=== PATIENT | female | born 1965 | race Caucasian/White ===

== ENCOUNTER 2017-05-04 16:33 | Emergency (ER) | payer OTHER, BC ==
[~2017-05-04] VITALS: Ht 165.1 cm; Wt 94.3 kg
[~2017-05-04 16:33] MED LIST: ACET325 PO; ACET500; ADULT TUSS100 MG/5 M PO; ALBU3IS INH; ALBU90OI; ALBU90OI6 INH; ASPI81CH PO; ASPI81EC PO; BENZ100A PO; BISA10S PR; BP MED PO; BREO ELLIPTA 21 EACH INH; BRINTELLIX20 MG PO; BUDE6HFA; CALMAGZIN PO; CARI350 PO; CEFD300 PO; CEPH500 PO; CITA20 PO; CYCL10 PO; ESCI10; ESCI10 PO; ESTR1; ESTR2; ESTR2 PO; Estrace PO; Estradiol1 MG PO; FEXO180 PO; FIBER SELECT GUMMIES; FLUO10 PO; FLUSAL2505; FLUSAL5005; FURO20 PO; Flagyl500 MG PO; GLIM4 PO; GUAI600T33 PO; Golytely Packe1 EACH PO; HYDACE5 PO; HYDCHL50; HYDCHLSU PO; HYDPAM25 PO; IBUP600 PO; IBUP800 PO; IPRAOI; IPRAOI INH; Kristalose20 GM PO; LANS15EC PO; LANS30EC; LANS30EC PO; LEVA.63IS; LEVA1.25 INH; LEVFLO500; LEVFLO500 PO; LEVO750 PO; LEVSOD100; LEVSOD100 PO; LEVSOD112 PO; LEVSOD125 PO; LISHYD1012 PO; LISI20 PO; LOSA50 PO; LOSHYD; MELO7.5 PO; METF500 PO; METPRE4DP PO; MONT10T; MONT4; NAPR500 PO; Norco 5-325 Ta1 EACH PO; ONDA4 PO; ONDA4ODT MM; OXYACE5T PO; PANT40 PO; PARO10 PO; POTCHL10ER PO; PRED10 PO; PRED20; PROBIOTIC FORMULA; PROCODE120 PO; Percocet 5-3251 EACH PO; Prednisone20 MG PO; RXCYCL10 PO; RXHYDACE PO; RXONDA4ODT MM; RXTRAM50 PO; TOPI50 PO; TRAM50 PO; TRAZODONE PO; TRIA80TC TOP; Tamiflu75 MG PO; VENL150ER PO; VENL75ER PO; Valium5 MG PO; XOPENEX; XOPENEX INH; Zithromax250 MG PO; Zofran Odt4 MG SL; Zofran4 MG PO; Zofran8 MG PO; [UNRECOGNIZED DRUG - REMARK]
[2017-05-04 17:44] LABS: BASOPHILS ABSOLUTE AUTO 0.05 K/mm3 (0.00-0.23); BASOPHILS PERCENT AUTO 1 % (0-2); EOSINOPHILS ABSOLUTE AUTO 0.15 K/mm3 (0.00-0.68); EOSINOPHILS PERCENT AUTO 2 % (0-6); Hematocrit 35.5 % (33.0-51.0); Hemoglobin 12.4 g/dL (11.5-16.0); IMMATURE GRAN ABSOLUTE AUTO 0.02 K/mm3 (0.00-0.10); IMMATURE GRAN PERCENT AUTO 0 % (0-1); LYMPHOCYTES ABSOLUTE AUTO 2.79 K/mm3 (0.84-5.20); LYMPHOCYTES PERCENT AUTO 32 % (21-46); MONOCYTES ABSOLUTE AUTO 0.78 K/mm3 (0.16-1.47); MONOCYTES PERCENT AUTO 9 % (4-13); Mean Corpuscular HGB 29.1 pg (26.0-34.0); Mean Corpuscular HGB Conc 34.9 g/dL (31.5-36.5); Mean Corpuscular Volume 83 fL (80-100); Mean Platelet Volume 11.1 fL (9.1-12.4); NEUTROPHILS ABSOLUTE AUTO 4.87 K/mm3 (1.96-9.15); NEUTROPHILS PERCENT AUTO 56 % (41-73); Platelet Count 244 K/mm3 (150-400); RDW Coefficient Variation 13.2 % (11.7-14.2); RDW Standard Deviation 39.7 fL (35.1-46.3); Red Blood Cell Count 4.26 M/mm3 (3.80-5.20); White Blood Cell Count 8.66 K/mm3 (4.00-11.30)
[2017-05-04 17:52] LABS: Alanine Aminotransfer (ALT/SGP 26 U/L (12-78); Albumin, Blood 3.5 g/dL (3.4-5.0); Alk Phos 77 U/L (50-136); Anion Gap 8 mmol/L (6-16); Aspartate Aminotrans (AST/SGOT 19 U/L (12-37); Bilirubin, Total 0.3 mg/dL (0.1-1.0); Blood Urea Nitrogen 18 mg/dL (8-24); Bun/Creatinine Ratio 22.2 (12.0-20.0); CO2, Blood 26 mmol/L (21-32); Calcium, Blood 8.5 mg/dL (8.5-10.1); Chloride, Blood 105 mmol/L (98-108); Creatinine, Blood 0.81 mg/dL (0.40-1.00); Globulin, Blood 3.5 g/dL (2.2-4.0); Glomerular Filtration Rate >60 (60-); Glucose, Blood 131 mg/dL (70-99); Sodium, Blood 139 mmol/L (136-145); Troponin I <0.015 ng/mL (0.000-0.040)
[2017-05-04 18:19] LABS: Influenza A Negative (NEGATIVE); Influenza B Negative (NEGATIVE)
[2018-02-07] MEDS ORDERED: ALBU90OI61 INH (21:58)
[2018-02-07] MEDS ORDERED: Prednisone50 MG PO (22:29)
[2018-02-07] MEDS ORDERED: BENADRYL25 MG PO (22:29)
[2018-02-07] MEDS ORDERED: Pepcid40 MG PO (22:29)
== END 2017-05-04 22:06 | disposition home or self-care (01) ==
LOC: ER 16:33
PROVIDERS: Emergency Medicine
DX: R07.2 Precordial pain (principal); Z88.2 Allergy status to sulfonamides; Z88.8 Allergy status to other drugs, medicaments and biological substances; Z79.899 Other long term (current) drug therapy; Z79.82 Long term (current) use of aspirin; E11.9 Type 2 diabetes mellitus without complications; J45.909 Unspecified asthma, uncomplicated
CPT/HCPCS: 36415; 71046; 80053; 81000; 84484; 85025; 85379; 87804; 93005; 93010; 94640; 96374; 99283; J2405

== ENCOUNTER 2017-06-08 17:13 | Emergency (ER) | payer OTHER, BC ==
[2018-02-07] MEDS ORDERED: ALBU90OI61 INH (21:58)
[2018-02-07] MEDS ORDERED: Pepcid40 MG PO (22:29)
[2018-02-07] MEDS ORDERED: BENADRYL25 MG PO (22:29)
[2018-02-07] MEDS ORDERED: Prednisone50 MG PO (22:29)
== END 2017-06-08 19:35 | disposition left against medical advice (07) ==
LOC: ER 17:13
DX: Z53.21 Procedure and treatment not carried out due to patient leaving prior to being seen by health care provider (principal)

== ENCOUNTER 2018-04-13 17:27 | Emergency (ER) | payer OTHER, BC ==
[~2018-04-13] VITALS: Ht 162.6 cm; Wt 92.1 kg
[~2018-04-13 17:27] MED LIST changes: +ALBU90OI61 INH; +BENADRYL25 MG PO; +Pepcid40 MG PO; +Prednisone50 MG PO
== END 2018-04-13 19:25 | disposition home or self-care (01) ==
LOC: ER 17:27
DX: R05 Cough (principal); E11.9 Type 2 diabetes mellitus without complications; I10 Essential (primary) hypertension; J45.909 Unspecified asthma, uncomplicated; E03.9 Hypothyroidism, unspecified; Z88.2 Allergy status to sulfonamides; Z88.8 Allergy status to other drugs, medicaments and biological substances; Z91.018 Allergy to other foods; Z79.899 Other long term (current) drug therapy; Z79.82 Long term (current) use of aspirin
CPT/HCPCS: 71046; 99283-25

== ENCOUNTER 2018-09-02 16:30 | Emergency (ER) | payer OTHER, BC ==
[~2018-09-02] VITALS: Ht 165.1 cm; Wt 87.1 kg
[2018-09-02 17:16] LABS: BASOPHILS ABSOLUTE AUTO 0.06 K/mm3 (0.00-0.23); BASOPHILS PERCENT AUTO 1 % (0-2); EOSINOPHILS ABSOLUTE AUTO 0.16 K/mm3 (0.00-0.68); EOSINOPHILS PERCENT AUTO 2 % (0-6); Hematocrit 40.5 % (33.0-51.0); Hemoglobin 13.7 g/dL (11.5-16.0); IMMATURE GRAN ABSOLUTE AUTO 0.02 K/mm3 (0.00-0.10); IMMATURE GRAN PERCENT AUTO 0 % (0-1); LYMPHOCYTES ABSOLUTE AUTO 2.84 K/mm3 (0.84-5.20); LYMPHOCYTES PERCENT AUTO 31 % (21-46); MONOCYTES ABSOLUTE AUTO 0.71 K/mm3 (0.16-1.47); MONOCYTES PERCENT AUTO 8 % (4-13); Mean Corpuscular HGB 28.5 pg (26.0-34.0); Mean Corpuscular HGB Conc 33.8 g/dL (31.5-36.5); Mean Corpuscular Volume 84 fL (80-100); Mean Platelet Volume 10.8 fL (9.1-12.4); NEUTROPHILS ABSOLUTE AUTO 5.29 K/mm3 (1.96-9.15); NEUTROPHILS PERCENT AUTO 58 % (41-73); Platelet Count 267 K/mm3 (150-400); RDW Coefficient Variation 12.4 % (11.7-14.2); RDW Standard Deviation 37.8 fL (35.1-46.3); Red Blood Cell Count 4.81 M/mm3 (3.80-5.20); White Blood Cell Count 9.08 K/mm3 (4.00-11.30)
[2018-09-02] MEDS ORDERED: LEVSOD125 PO (17:18)
[2018-09-02] MEDS ORDERED: LOSA50 PO (17:18)
[2018-09-02] MEDS ORDERED: Aspir 8181 MG PO (17:18)
[2018-09-02] MEDS ORDERED: ALBU3IS (17:18)
[2018-09-02] MEDS ORDERED: ALBU90OI61 (17:19)
[2018-09-02] MEDS ORDERED: VENL25 (17:19)
[2018-09-02 17:36] LABS: Alanine Aminotransfer (ALT/SGP 29 U/L (12-78); Albumin, Blood 3.8 g/dL (3.4-5.0); Alk Phos 79 U/L (50-136); Anion Gap 6 mmol/L (6-16); Aspartate Aminotrans (AST/SGOT 19 U/L (12-37); Bilirubin, Total 0.7 mg/dL (0.1-1.0); Blood Urea Nitrogen 16 mg/dL (8-24); CO2, Blood 27 mmol/L (21-32); Calcium, Blood 8.8 mg/dL (8.5-10.1); Chloride, Blood 102 mmol/L (98-108); Creatinine, Blood 0.94 mg/dL (0.40-1.00); Globulin, Blood 3.8 g/dL (2.2-4.0); Glomerular Filtration Rate >60 (60-); Glucose, Blood 151 mg/dL (70-99); Potassium, Blood 3.7 mmol/L (3.5-5.5); Sodium, Blood 135 mmol/L (136-145); Total Protein, Blood 7.6 g/dL (6.4-8.2)
[2018-09-02] MEDS ORDERED: Augmentin 875-1 EACH PO (20:18)
== END 2018-09-02 20:42 | disposition home or self-care (01) ==
LOC: ER 16:30
PROVIDERS: Emergency Medicine
DX: K52.9 Noninfective gastroenteritis and colitis, unspecified (principal); E11.9 Type 2 diabetes mellitus without complications; E03.9 Hypothyroidism, unspecified; I10 Essential (primary) hypertension; J45.909 Unspecified asthma, uncomplicated; Z88.2 Allergy status to sulfonamides; Z88.8 Allergy status to other drugs, medicaments and biological substances; Z91.018 Allergy to other foods
CPT/HCPCS: 36415; 74177; 80053; 83690; 84484; 85025; 93005; 93010; 96361; 96374-59; 96375; 96376; 99284-25; A9270-GY; J1885; J2270; J2405; J7030; Q9967

== ENCOUNTER 2019-01-14 18:16 | Emergency (ER) | payer OTHER, BC ==
[~2019-01-14] VITALS: Ht 162.6 cm; Wt 90.3 kg
[~2019-01-14 18:16] MED LIST changes: +ALBU3IS; +ALBU90OI61; +Aspir 8181 MG PO; +Augmentin 875-1 EACH PO; +VENL25
[2019-01-14 18:50] LABS: Source, Urine Clean Catch
[2019-01-14 18:55] LABS: BASOPHILS ABSOLUTE AUTO 0.05 K/mm3 (0.00-0.23); BASOPHILS PERCENT AUTO 1 % (0-2); EOSINOPHILS ABSOLUTE AUTO 0.15 K/mm3 (0.00-0.68); EOSINOPHILS PERCENT AUTO 2 % (0-6); Hematocrit 36.7 % (33.0-51.0); Hemoglobin 12.7 g/dL (11.5-16.0); IMMATURE GRAN ABSOLUTE AUTO 0.04 K/mm3 (0.00-0.10); IMMATURE GRAN PERCENT AUTO 0 % (0-1); LYMPHOCYTES PERCENT AUTO 30 % (21-46); MONOCYTES ABSOLUTE AUTO 0.77 K/mm3 (0.16-1.47); MONOCYTES PERCENT AUTO 8 % (4-13); Mean Corpuscular HGB 28.9 pg (26.0-34.0); Mean Corpuscular HGB Conc 34.6 g/dL (31.5-36.5); Mean Corpuscular Volume 83 fL (80-100); Mean Platelet Volume 11.1 fL (9.1-12.4); NEUTROPHILS ABSOLUTE AUTO 5.49 K/mm3 (1.96-9.15); NEUTROPHILS PERCENT AUTO 59 % (41-73); Platelet Count 246 K/mm3 (150-400); RDW Coefficient Variation 12.5 % (11.7-14.2)
[2019-01-14 19:03] LABS: Appearance, Urine Clear (Clear); Bilirubin, Urine Neg (Neg); Blood, Urine Neg (Neg); Color, Urine Amber (P-Yellow); Glucose Qualitative, Urine Neg (Neg); Ketones, Urine 1+ (Neg); Leukocyte Esterase, Urine 1+ (Neg); Nitrite, Urine Neg (Neg); Protein, Urine Neg (Neg); Specific Gravity, Urine 1.025 (1.003-1.022); Urobilinogen, Urine NORM (Normal)
[2019-01-14 19:05] LABS: Red Blood Cells, Urine 0-2 /hpf (0-2)
[2019-01-14 19:06] LABS: Bacteria Mod /hpf; Squamous Epithelial Cells Mod /hpf (Few)
[2019-01-14 19:12] LABS: Alanine Aminotransfer (ALT/SGP 28 U/L (12-78); Albumin, Blood 3.7 g/dL (3.4-5.0); Albumin/Globulin Ratio 1.2 (0.8-1.8); Alk Phos 89 U/L (50-136); Anion Gap 5 mmol/L (6-16); Aspartate Aminotrans (AST/SGOT 17 U/L (12-37); Bilirubin, Total 0.4 mg/dL (0.1-1.0); Blood Urea Nitrogen 21 mg/dL (8-24); Bun/Creatinine Ratio 22.1 (12.0-20.0); CO2, Blood 28 mmol/L (21-32); Calcium, Blood 8.7 mg/dL (8.5-10.1); Chloride, Blood 104 mmol/L (98-108); Creatinine, Blood 0.95 mg/dL (0.40-1.00); Globulin, Blood 3.2 g/dL (2.2-4.0); Glomerular Filtration Rate >60 (60-); Glucose, Blood 179 mg/dL (70-99); Potassium, Blood 3.9 mmol/L (3.5-5.5); Sodium, Blood 137 mmol/L (136-145); Total Protein, Blood 6.9 g/dL (6.4-8.2)
== END 2019-01-14 23:17 | disposition home or self-care (01) ==
LOC: ER 18:16
PROVIDERS: Physician Assistant
DX: K52.9 Noninfective gastroenteritis and colitis, unspecified (principal); K59.00 Constipation, unspecified; E11.9 Type 2 diabetes mellitus without complications; I10 Essential (primary) hypertension; E03.9 Hypothyroidism, unspecified; Z88.2 Allergy status to sulfonamides; Z88.1 Allergy status to other antibiotic agents; Z91.018 Allergy to other foods; Z79.899 Other long term (current) drug therapy; Z79.82 Long term (current) use of aspirin
CPT/HCPCS: 36415; 74176; 80053; 81001; 83690; 85025; 87086; 96361; 96374; 96376; 99284-25; J2405; J7030

== ENCOUNTER 2019-02-09 02:22 | Emergency (ER) | payer OTHER, BC ==
[~2019-02-09] VITALS: Ht 162.6 cm; Wt 88.5 kg
[2019-02-09 03:34] LABS: BASOPHILS ABSOLUTE AUTO 0.06 K/mm3 (0.00-0.23); BASOPHILS PERCENT AUTO 1 % (0-2); EOSINOPHILS PERCENT AUTO 2 % (0-6); Hematocrit 39.2 % (33.0-51.0); Hemoglobin 13.5 g/dL (11.5-16.0); IMMATURE GRAN ABSOLUTE AUTO 0.02 K/mm3 (0.00-0.10); IMMATURE GRAN PERCENT AUTO 0 % (0-1); LYMPHOCYTES ABSOLUTE AUTO 2.76 K/mm3 (0.84-5.20); LYMPHOCYTES PERCENT AUTO 31 % (21-46); MONOCYTES ABSOLUTE AUTO 0.79 K/mm3 (0.16-1.47); MONOCYTES PERCENT AUTO 9 % (4-13); Mean Corpuscular HGB 29.2 pg (26.0-34.0); Mean Corpuscular HGB Conc 34.4 g/dL (31.5-36.5); Mean Corpuscular Volume 85 fL (80-100); Mean Platelet Volume 10.9 fL (9.1-12.4); NEUTROPHILS ABSOLUTE AUTO 5.18 K/mm3 (1.96-9.15); NEUTROPHILS PERCENT AUTO 58 % (41-73); Platelet Count 264 K/mm3 (150-400); RDW Coefficient Variation 12.6 % (11.7-14.2); RDW Standard Deviation 38.3 fL (35.1-46.3); Red Blood Cell Count 4.63 M/mm3 (3.80-5.20); White Blood Cell Count 9.01 K/mm3 (4.00-11.30)
[2019-02-09 03:53] LABS: Alanine Aminotransfer (ALT/SGP 27 U/L (12-78); Albumin/Globulin Ratio 1.1 (0.8-1.8); Alk Phos 96 U/L (50-136); Anion Gap 6 mmol/L (6-16); Aspartate Aminotrans (AST/SGOT 23 U/L (12-37); Bilirubin, Total 0.4 mg/dL (0.1-1.0); Blood Urea Nitrogen 19 mg/dL (8-24); Bun/Creatinine Ratio 18.6 (12.0-20.0); CO2, Blood 27 mmol/L (21-32); Calcium, Blood 8.9 mg/dL (8.5-10.1); Chloride, Blood 106 mmol/L (98-108); Creatinine, Blood 1.02 mg/dL (0.40-1.00); Globulin, Blood 3.7 g/dL (2.2-4.0); Glomerular Filtration Rate >60 (60-); Glucose, Blood 149 mg/dL (70-99); Potassium, Blood 4.1 mmol/L (3.5-5.5); Sodium, Blood 139 mmol/L (136-145); Total Protein, Blood 7.7 g/dL (6.4-8.2)
[2019-02-09 04:04] LABS: Source, Urine Clean Catch
[2019-02-09 04:16] LABS: Bilirubin, Urine Neg (Neg); Blood, Urine 1+ (Neg); Glucose Qualitative, Urine Neg (Neg); Ketones, Urine Neg (Neg); Leukocyte Esterase, Urine 1+ (Neg); Nitrite, Urine Neg (Neg); Protein, Urine Neg (Neg); Urobilinogen, Urine NORM (Normal)
[2019-02-09 04:20] LABS: Appearance, Urine Hazy (Clear); Color, Urine Yellow (P-Yellow)
[2019-02-09 04:22] LABS: Bacteria Mod /hpf; Red Blood Cells, Urine Rare /hpf (0-2); Squamous Epithelial Cells Few /hpf (Few)
[2019-02-09] MEDS ORDERED: Flomax0.4 MG PO (05:37)
[2019-02-09] MEDS ORDERED: ONDA4ODT MM (05:37)
[2019-02-09] MEDS ORDERED: Percocet 5-3251 EACH PO (05:37)
== END 2019-02-09 05:57 | disposition home or self-care (01) ==
LOC: ER 02:22
PROVIDERS: Emergency Medicine
DX: N20.1 Calculus of ureter (principal); E11.9 Type 2 diabetes mellitus without complications; E03.9 Hypothyroidism, unspecified; I10 Essential (primary) hypertension; Z88.2 Allergy status to sulfonamides; Z88.1 Allergy status to other antibiotic agents; Z91.018 Allergy to other foods; Z79.899 Other long term (current) drug therapy
CPT/HCPCS: 36415; 74176; 80053; 81001; 85025; 87086; 96361; 96374; 96375; 99284-25; A9270; J1170; J1885; J2405; J7030

== ENCOUNTER 2019-03-04 08:48 | Emergency (ER) | payer OTHER, BC ==
[~2019-03-04] VITALS: Ht 162.6 cm; Wt 88.9 kg
[~2019-03-04 08:48] MED LIST changes: +Flomax0.4 MG PO
[2019-03-04 09:39] LABS: Source, Urine Clean Catch
[2019-03-04 09:47] LABS: Bilirubin, Urine Neg (Neg); Blood, Urine 5+ (Neg); Glucose Qualitative, Urine Neg (Neg); Ketones, Urine Neg (Neg); Leukocyte Esterase, Urine 3+ (Neg); Nitrite, Urine Pos (Neg); Protein, Urine 3+ (Neg); Specific Gravity, Urine 1.015 (1.003-1.022); Urobilinogen, Urine NORM (Normal)
[2019-03-04 09:55] LABS: BASOPHILS ABSOLUTE AUTO 0.05 K/mm3 (0.00-0.23); BASOPHILS PERCENT AUTO 1 % (0-2); EOSINOPHILS ABSOLUTE AUTO 0.18 K/mm3 (0.00-0.68); EOSINOPHILS PERCENT AUTO 2 % (0-6); Hematocrit 36.2 % (33.0-51.0); Hemoglobin 12.7 g/dL (11.5-16.0); IMMATURE GRAN ABSOLUTE AUTO 0.03 K/mm3 (0.00-0.10); IMMATURE GRAN PERCENT AUTO 0 % (0-1); LYMPHOCYTES ABSOLUTE AUTO 1.83 K/mm3 (0.84-5.20); LYMPHOCYTES PERCENT AUTO 19 % (21-46); MONOCYTES ABSOLUTE AUTO 0.65 K/mm3 (0.16-1.47); MONOCYTES PERCENT AUTO 7 % (4-13); Mean Corpuscular HGB 29.1 pg (26.0-34.0); Mean Corpuscular HGB Conc 35.1 g/dL (31.5-36.5); Mean Corpuscular Volume 83 fL (80-100); Mean Platelet Volume 10.7 fL (9.1-12.4); NEUTROPHILS ABSOLUTE AUTO 6.76 K/mm3 (1.96-9.15); NEUTROPHILS PERCENT AUTO 71 % (41-73); Platelet Count 223 K/mm3 (150-400); RDW Coefficient Variation 12.2 % (11.7-14.2); RDW Standard Deviation 37.2 fL (35.1-46.3); Red Blood Cell Count 4.37 M/mm3 (3.80-5.20)
[2019-03-04 09:55] LABS: Appearance, Urine Hazy (Clear)
[2019-03-04] MEDS ORDERED: ASPI81CH PO (09:55)
[2019-03-04] MEDS ORDERED: VENL150ER PO (09:55)
[2019-03-04] MEDS ORDERED: BUPR150ER PO (09:55)
[2019-03-04 09:56] LABS: Bacteria Few /hpf; Color, Urine Yellow (P-Yellow); Squamous Epithelial Cells Few /hpf (Few)
[2019-03-04] MEDS ORDERED: TAMS.4ER PO (09:56)
[2019-03-04] MEDS ORDERED: LEVSOD125 PO (09:56)
[2019-03-04 10:12] LABS: Alanine Aminotransfer (ALT/SGP 32 U/L (12-78); Albumin, Blood 3.6 g/dL (3.4-5.0); Alk Phos 83 U/L (50-136); Anion Gap 6 mmol/L (6-16); Aspartate Aminotrans (AST/SGOT 25 U/L (12-37); Bilirubin, Total 0.5 mg/dL (0.1-1.0); Blood Urea Nitrogen 12 mg/dL (8-24); Bun/Creatinine Ratio 13.2 (12.0-20.0); CO2, Blood 27 mmol/L (21-32); Calcium, Blood 8.8 mg/dL (8.5-10.1); Chloride, Blood 106 mmol/L (98-108); Creatinine, Blood 0.91 mg/dL (0.40-1.00); Globulin, Blood 3.6 g/dL (2.2-4.0); Glomerular Filtration Rate >60 (60-); Glucose, Blood 138 mg/dL (70-99); Potassium, Blood 4.3 mmol/L (3.5-5.5); Sodium, Blood 139 mmol/L (136-145); Total Protein, Blood 7.2 g/dL (6.4-8.2)
[2019-03-04] MEDS ORDERED: Norco 5-325 Ta1 EACH PO (10:16)
[2019-03-04] MEDS ORDERED: IBUP800 PO (10:16)
[2019-03-04] MEDS ORDERED: Cipro500 MG PO (10:16)
== END 2019-03-04 11:17 | disposition home or self-care (01) ==
LOC: ER 08:48
PROVIDERS: Emergency Medicine
DX: N10 Acute pyelonephritis (principal); I10 Essential (primary) hypertension; E11.9 Type 2 diabetes mellitus without complications; E03.9 Hypothyroidism, unspecified; J45.909 Unspecified asthma, uncomplicated; Z87.442 Personal history of urinary calculi; Z88.2 Allergy status to sulfonamides; Z88.8 Allergy status to other drugs, medicaments and biological substances; Z91.018 Allergy to other foods; Z79.899 Other long term (current) drug therapy; Z79.82 Long term (current) use of aspirin
CPT/HCPCS: 36415; 76770; 80053; 81001; 85025; 87077; 87086; 87186; 96374; 96375; 99284-25; J1885; J2405; J3010

== ENCOUNTER 2019-04-01 18:31 | Observation (INO) | payer OTHER, BC ==
[~2019-04-01] VITALS: Ht 162.6 cm; Wt 90.7 kg
[~2019-04-01 18:31] MED LIST changes: +Aspirin EC81 MG PO; +BUPR150ER PO; +Cipro500 MG PO; +TAMS.4ER PO; +VENLAFAXINE HC225 MG PO
[2019-04-01 19:10] LABS: BASOPHILS ABSOLUTE AUTO 0.07 K/mm3 (0.00-0.23); BASOPHILS PERCENT AUTO 1 % (0-2); EOSINOPHILS PERCENT AUTO 2 % (0-6); Hematocrit 39.7 % (33.0-51.0); Hemoglobin 13.6 g/dL (11.5-16.0); IMMATURE GRAN ABSOLUTE AUTO 0.03 K/mm3 (0.00-0.10); IMMATURE GRAN PERCENT AUTO 0 % (0-1); LYMPHOCYTES ABSOLUTE AUTO 3.25 K/mm3 (0.84-5.20); LYMPHOCYTES PERCENT AUTO 32 % (21-46); MONOCYTES ABSOLUTE AUTO 0.77 K/mm3 (0.16-1.47); MONOCYTES PERCENT AUTO 8 % (4-13); Mean Corpuscular HGB 29.6 pg (26.0-34.0); Mean Corpuscular HGB Conc 34.3 g/dL (31.5-36.5); Mean Corpuscular Volume 86 fL (80-100); Mean Platelet Volume 10.4 fL (9.1-12.4); NEUTROPHILS PERCENT AUTO 57 % (41-73); Platelet Count 259 K/mm3 (150-400); RDW Coefficient Variation 12.3 % (11.7-14.2); RDW Standard Deviation 39.1 fL (35.1-46.3); White Blood Cell Count 10.12 K/mm3 (4.00-11.30)
[2019-04-01 19:36] LABS: Alanine Aminotransfer (ALT/SGP 50 U/L (12-78); Albumin/Globulin Ratio 1.1 (0.8-1.8); Alk Phos 84 U/L (50-136); Anion Gap 7 mmol/L (6-16); Aspartate Aminotrans (AST/SGOT 32 U/L (12-37); Bilirubin, Total 0.4 mg/dL (0.1-1.0); Blood Urea Nitrogen 14 mg/dL (8-24); Bun/Creatinine Ratio 18.3 (12.0-20.0); CO2, Blood 26 mmol/L (21-32); Calcium, Blood 8.9 mg/dL (8.5-10.1); Chloride, Blood 104 mmol/L (98-108); Creatinine, Blood 0.77 mg/dL (0.40-1.00); Globulin, Blood 3.7 g/dL (2.2-4.0); Glomerular Filtration Rate >60 (60-); Glucose, Blood 139 mg/dL (70-99); Potassium, Blood 4.1 mmol/L (3.5-5.5); Sodium, Blood 137 mmol/L (136-145); Total Protein, Blood 7.7 g/dL (6.4-8.2)
[2019-04-01 21:54] LABS: Source, Urine Clean Catch
[2019-04-01 22:01] LABS: Bilirubin, Urine Neg (Neg); Blood, Urine 1+ (Neg); Glucose Qualitative, Urine Neg (Neg); Ketones, Urine Neg (Neg); Leukocyte Esterase, Urine 1+ (Neg); Nitrite, Urine Neg (Neg); Protein, Urine Neg (Neg); Urobilinogen, Urine NORM (Normal)
[2019-04-01 22:04] LABS: Appearance, Urine Clear (Clear); Color, Urine Yellow (P-Yellow)
[2019-04-01 22:05] LABS: Bacteria Mod /hpf; Red Blood Cells, Urine 0-2 /hpf (0-2); Squamous Epithelial Cells Few /hpf (Few); White Blood Cells, Urine 0-2 /hpf (0-5)
--- NOTE | 2019-04-01 22:24 | NUR ---
ADMITTED 54 YR OLD FEMALE FROM THE ED WITH DX GI BLEED. ADMITTED FOR OBSERVATION. HX REPORTED HEMORRHOIDS. ALERT AND ORIENTED X 4. UP AD ALYCE. CLEAR LIQUID DIET. NO ANTICOAGULANTS. ORIENTED TO CALL LIGHT AND FALL PRECAUTIONS. PLACED ON [employer].
[2019-04-02 01:07] LABS: Hematocrit 37.2 % (33.0-51.0); Hemoglobin 12.7 g/dL (11.5-16.0)
--- NOTE | 2019-04-02 06:39 | NUR ---
RESTING QUIETLY WITH FEW INTERRUPTIONS. VSS. PLACED ON ISO PRECAUTIONS PER INFECTION CONTROL UNTIL GI PANEL IS COLLECTED. CALL LIGHT IN REACH.
[2019-04-02 07:35] LABS: Hemoglobin 12.7 g/dL (11.5-16.0)
[2019-04-02 12:41] LABS: Adenovirus F 40/41 Not Detected (NOT DETECT); Astrovirus Not Detected (NOT DETECT); Campylobacter Sp Not Detected (NOT DETECT); Cryptosporidium Not Detected (NOT DETECT); Cyclospora Cayetanensis Not Detected (NOT DETECT); E. Coli O157 Not Detected (NOT DETECT); Entamoeba Histolytica Not Detected (NOT DETECT); Enteroaggregative E. coli-EAEC Not Detected (NOT DETECT); Enteropathogenic E. coli-EPEC Not Detected (NOT DETECT); Enterotoxigenic E. coli-ETEC Not Detected (NOT DETECT); Giardia Lamblia Not Detected (NOT DETECT); Norovirus GI/GII Not Detected (NOT DETECT); Plesiomonas Shigelloides Not Detected (NOT DETECT); Rotavirus A Not Detected (NOT DETECT); Salmonella Sp Not Detected (NOT DETECT); Sapovirus Not Detected (NOT DETECT); Shiga Toxin-prod E. coli-STEC Not Detected (NOT DETECT); Shigella/Enteroin E. coli-EIEC Not Detected (NOT DETECT); Vibrio Cholerae Not Detected (NOT DETECT); Vibrio Sp Not Detected (NOT DETECT); Yersinia Enterocolitica Not Detected (NOT DETECT)
--- NOTE | 2019-04-02 17:05 | NUR ---
SHIFT SUMMARY PT SEEN BY GI THIS SHIFT. PLANS TO START COLONOSCOPY PREP THIS EVENING. PT TO BE NPO AFTER LUNCH TOMORROW FOR UPPER & LOWER SCOPES. PT AWARE. PT MEDICATED FOR PAIN ONCE THIS SHIFT. PT REPORTS BLOOD IN STOOL THIS SHIFT. STOOL SAMPLE NEGATIVE FOR C.DIFF. NO OTHER CHANGES IN ASSESSMENT AT THIS TIME. VSS. WILL CONTINUE TO MONITOR UNTIL TURNOVER IS COMPLETE.
--- NOTE | 2019-04-03 00:50 | NUR ---
BEGINNING SHIFT SUMMARY ASSUMED CARE OF PT AT 1900. PT WAS LYING IN BED WITH FAMILY AT HER SIDE. PT IS A/O X4. PT IS PAINFUL IN HER ABDOMEN, MEDICATED PER EMAR. HEART SOUNDS REGULAR, PERIPHERAL PULSES STRONG, TELE NORMAL SINUS @ 91 PER HEAD BAKER, IV R ARM INFUSING LR AT 75ML/HR. LUNG SOUNDS CLEAR, DENIES SOB/ DYSPNEA AT THIS TIME. BOWEL TONES HYPOACTIVE, ABDOMEN PAINFUL TO TOUCH, BOWEL PREP INITIATED FOR ENDOSCOPY 04/03/2019, BOWEL MOVEMENTS LIQUID, YELLOW, WITH SCANT BLOOD. URINE CLEAR AND YELLOW. PT IS CURRENTLY SLEEPING, CALL LIGHT IN REACH, BED IN LOWEST POSITION, WILL CONTINUE TO MONITOR.
--- NOTE | 2019-04-03 05:53 | NUR ---
END SHIFT SUMMARY NO ACUTE CHANGES NOTED THROUGHOUT THE NIGHT. THE PT FINISHED HALF OF HER BOWEL PREP YESTERDAY AFTERNOON AND HAS BEEN HAVING LIQUID YELLOW STOOLS WITH SCANT BLOOD T/O THE NIGHT. PT HAD ONE EPISODE OF INCONTINENCE THAT LEFT HER IN TEARS. PT C/O HEADACHE AND AB PAIN THROUGHOUT THE NIGHT, MEDICATED PER EMAR. PT IS CURRENTLY SLEEPING. CALL LIGHT IN REACH, BED IN LOWEST POSTION, WILL CONTINUE TO MONITOR UNTIL DAYSHIFT NURSE ARRIVES.
[2019-04-03 08:28] LABS: BASOPHILS ABSOLUTE AUTO 0.06 K/mm3 (0.00-0.23); BASOPHILS PERCENT AUTO 1 % (0-2); EOSINOPHILS ABSOLUTE AUTO 0.18 K/mm3 (0.00-0.68); EOSINOPHILS PERCENT AUTO 3 % (0-6); Hematocrit 35.2 % (33.0-51.0); Hemoglobin 11.8 g/dL (11.5-16.0); IMMATURE GRAN ABSOLUTE AUTO 0.01 K/mm3 (0.00-0.10); IMMATURE GRAN PERCENT AUTO 0 % (0-1); LYMPHOCYTES ABSOLUTE AUTO 1.75 K/mm3 (0.84-5.20); LYMPHOCYTES PERCENT AUTO 26 % (21-46); MONOCYTES ABSOLUTE AUTO 0.58 K/mm3 (0.16-1.47); MONOCYTES PERCENT AUTO 9 % (4-13); Mean Corpuscular HGB 29.2 pg (26.0-34.0); Mean Corpuscular HGB Conc 33.5 g/dL (31.5-36.5); Mean Corpuscular Volume 87 fL (80-100); Mean Platelet Volume 10.7 fL (9.1-12.4); NEUTROPHILS ABSOLUTE AUTO 4.17 K/mm3 (1.96-9.15); NEUTROPHILS PERCENT AUTO 62 % (41-73); Platelet Count 206 K/mm3 (150-400); RDW Coefficient Variation 12.1 % (11.7-14.2); Red Blood Cell Count 4.04 M/mm3 (3.80-5.20); White Blood Cell Count 6.75 K/mm3 (4.00-11.30)
[2019-04-03 08:40] LABS: Albumin, Blood 3.4 g/dL (3.4-5.0); Anion Gap 5 mmol/L (6-16); Blood Urea Nitrogen 9 mg/dL (8-24); CO2, Blood 28 mmol/L (21-32); Calcium, Blood 8.3 mg/dL (8.5-10.1); Chloride, Blood 105 mmol/L (98-108); Creatinine, Blood 0.75 mg/dL (0.40-1.00); Glomerular Filtration Rate >60 (60-); Glucose, Blood 145 mg/dL (70-99); Phosphorus, Blood 4.2 mg/dL (2.5-4.9); Potassium, Blood 3.8 mmol/L (3.5-5.5); Sodium, Blood 138 mmol/L (136-145)
--- NOTE | 2019-04-03 16:47 | NUR ---
SHIFT SUMMARY PT HAS HAD NO ACUTE CHANGES THIS SHIFT. MEDICATED X2 FOR PAIN. PT HAS BEEN ON CLEAR LIQUIDS UNTIL LUNCH AND THEN NPO. PT HAS PASSED YELLOW WATERY STOOL AND RJ ANY BLOOD COLORED STOOL. PT HAS AN UPPER AND LOWER SCOPE SCHDULED ATER 1700 PER DAY SURGERY. CALL LIGHT WITH IN REACH AND WILL CONTINUE T0 MONOTIOR THE REMAINDER OF THE SHIFT. WILL REPORT TO AMBER FUNEZ.
--- NOTE | 2019-04-03 18:30 | NUR ---
PT TO PROCEDURE PT OFF FLOOR FOR UPPER AND LOWER SCOPE.
--- NOTE | 2019-04-03 18:38 | NUR ---
04/03/19 1837 EMIR HUDSON History, Chart, Medications and Allergies reviewed before start of procedure.3-LEAD EKG REVIEWED WITH PHYSICIAN PRIOR TO START OF PROCEDURE.O2 VIA N/C INTACT THROUGHOUT SEDATION/PROCEDURE. MONITOR INTACT WITH CONTINUOUS PULSE OXIMETRY AND INTERMITTENT BP.PATIENT DETERMINED TO BE ASA APPROPRIATE FOR PROPOFOL SEDATION PRIOR TO START OF PROCEDURE BY
--- NOTE | 2019-04-03 18:39 | NUR ---
Patient states colon prep results clear. History, Chart, Medications and Allergies reviewed before start of procedure. Lungs clear T/O to Auscultation. Patient confirms NPO status and agrees with scheduled surgery. Pre-Op teaching done. Pt verbalizes understanding.
--- NOTE | 2019-04-03 19:59 | NUR ---
Patient arrived from endoscopy awake with mild abdominal pain. Report given by DEE DEE Hinkle. Family, especially spouse upset about not getting results after scope procedures. DEE DEE Hinkle stated to myself and the family that several biopsies were taken during procedure, but that the only abnormalities seen at the time were hemmoroids. will continue monitoring.
[2019-04-04] MEDS ORDERED: ALBU90OI INH (10:40)
[2019-04-04] MEDS ORDERED: HEMORRHOIDAL OI57 GM TOP (10:41)
[2019-04-04] MEDS ORDERED: PANT40 PO (10:43)
--- NOTE | 2019-04-04 11:48 | NUR ---
DISCHARGE SUMMARY PATIENT STABLE, D/C HOME BY PRIVATE CAR, PT MOTHER DRIVING. EDUCATION PROVIDED ON DIET AND NEW MEDICATION, PT UNDERSTOOD AND HAD NO QUESTIONS,
== END 2019-04-04 11:00 | disposition home or self-care (01) ==
LOC: ER 18:31 → MEDS 18:32 → ENPENDDIS 04-04 08:24 → MEDS 04-04 11:00
PROVIDERS: Internal Medicine; Physician Assistant; Student in an Organized Health Care Education/Training Program; ADMIT Internal Medicine
PROC: 0DB58ZZ Excision of Esophagus, Via Natural or Artificial Opening Endoscopic (ICD-10-PCS; principal; 2019-04-03 17:00)
PROC: 0DBG8ZZ Excision of Left Large Intestine, Via Natural or Artificial Opening Endoscopic (ICD-10-PCS; principal; 2019-04-03 17:00)
PROC: 0DBF8ZZ Excision of Right Large Intestine, Via Natural or Artificial Opening Endoscopic (ICD-10-PCS; principal; 2019-04-03 17:00)
PROC: 0DB68ZZ Excision of Stomach, Via Natural or Artificial Opening Endoscopic (ICD-10-PCS; principal; 2019-04-03 17:00)
DX: K62.5 Hemorrhage of anus and rectum (principal); K52.9 Noninfective gastroenteritis and colitis, unspecified; E11.9 Type 2 diabetes mellitus without complications; J45.909 Unspecified asthma, uncomplicated; E03.9 Hypothyroidism, unspecified; I10 Essential (primary) hypertension; N20.0 Calculus of kidney; K20.9 Esophagitis, unspecified; K64.8 Other hemorrhoids; K64.4 Residual hemorrhoidal skin tags; K29.40 Chronic atrophic gastritis without bleeding; Z79.82 Long term (current) use of aspirin; Z79.899 Other long term (current) drug therapy; Z88.1 Allergy status to other antibiotic agents; Z88.2 Allergy status to sulfonamides; Z91.018 Allergy to other foods
CPT/HCPCS: 0097U; 36415; 46600; 74177; 80053; 80069; 81001; 82947; 85014; 85018; 85025; 86850; 86900; 86901; 87086; 88305; 88342; 96361; 96374; 96375; 96376; 99285-25; C9113; G0378; J1170; J2704; J7120; Q9967

== ENCOUNTER 2019-07-05 05:55 | Day surgery (SDC) | payer OTHER, BC ==
[~2019-07-05] VITALS: Ht 165.1 cm; Wt 40.0 kg
[~2019-07-05 05:55] MED LIST changes: +ALBU90OI INH; +HEMORRHOIDAL OI57 GM TOP; +LEVSOD137 PO
[2019-07-05] MEDS ORDERED: Crestor20 MG PO (06:35)
[2019-07-05] MEDS ORDERED: Isosorbide Mono30 MG PO (06:35)
[2019-07-05] MEDS ORDERED: Atrovent Inha12.9 GM INH (06:36)
[2019-07-05] MEDS ORDERED: NITR.6SL SL (06:37)
[2019-07-05] MEDS ORDERED: DILT120 PO (08:26)
--- NOTE | 2019-07-05 09:04 | NUR ---
TO BATHROOM. TOLERATED WELL. TR BAND INTACT. NO BLEEDING AT SITE.
--- NOTE | 2019-07-05 09:21 | NUR ---
DR. LUIS HERE TO SPEAK WITH PATIENT.
--- NOTE | 2019-07-05 09:41 | NUR ---
11 CC OF AIR REMOVED OVER 12 MINUTES FROM NOW DEFLATED RIGHT TR BAND; NO HEMATOMA, SOFT, NO PULSATILE BLEEDING. RIGHT RADIAL DISCHARGE CARE INSTRUCTIONS REVIEWED AND ALL QUESTIONS ANSWERED.
--- NOTE | 2019-07-05 10:30 | NUR ---
DRESSED FOR DISCHARGE. TR BAND REMOVED. SITE CLEANED, CLOTH DOT AND IMMOBILIZER APPLIED.
--- NOTE | 2019-07-05 10:45 | NUR ---
IV REMOVED INTACT. 2X2, COBAN AND MANUAL PRESSURE HELD.
--- NOTE | 2019-07-05 10:46 | NUR ---
DISCHARGE INSTRUCTIONS GIVEN WITH VERBAL AND WRITTEN UNDERSTANDING. SLING APPLIED TO WRIST ARM.
--- NOTE | 2019-07-05 10:48 | NUR ---
DISCHARGED HOME VIA WHEELCHAIR. DRIVING.
== END 2019-07-05 10:48 | disposition home or self-care (01) ==
LOC: MHTC 05:55
DX: R07.9 Chest pain, unspecified (principal); I10 Essential (primary) hypertension; E11.9 Type 2 diabetes mellitus without complications; E03.9 Hypothyroidism, unspecified; E78.5 Hyperlipidemia, unspecified; E66.3 Overweight; Z79.82 Long term (current) use of aspirin; Z79.899 Other long term (current) drug therapy; Z88.2 Allergy status to sulfonamides; Z79.02 Long term (current) use of antithrombotics/antiplatelets
CPT/HCPCS: 93458; 99152; 99153; C1769; C1894; J1644; J2250; J3010; J7030; Q9967

== ENCOUNTER 2019-07-13 23:07 | Emergency (ER) | payer OTHER, BC ==
[~2019-07-13] VITALS: Ht 165.1 cm; Wt 95.2 kg
[~2019-07-13 23:07] MED LIST changes: +Atrovent Inha12.9 GM INH; +Crestor20 MG PO; +DILT120 PO; +Isosorbide Mono30 MG PO; +NITR.6SL SL
[2019-07-13 23:59] LABS: BASOPHILS ABSOLUTE AUTO 0.05 K/mm3 (0.00-0.23); BASOPHILS PERCENT AUTO 1 % (0-2); EOSINOPHILS ABSOLUTE AUTO 0.21 K/mm3 (0.00-0.68); EOSINOPHILS PERCENT AUTO 2 % (0-6); Hemoglobin 12.6 g/dL (11.5-16.0); IMMATURE GRAN ABSOLUTE AUTO 0.05 K/mm3 (0.00-0.10); IMMATURE GRAN PERCENT AUTO 1 % (0-1); LYMPHOCYTES ABSOLUTE AUTO 2.91 K/mm3 (0.84-5.20); LYMPHOCYTES PERCENT AUTO 28 % (21-46); MONOCYTES ABSOLUTE AUTO 0.73 K/mm3 (0.16-1.47); MONOCYTES PERCENT AUTO 7 % (4-13); Mean Corpuscular HGB 29.2 pg (26.0-34.0); Mean Corpuscular Volume 83 fL (80-100); Mean Platelet Volume 10.3 fL (9.1-12.4); NEUTROPHILS ABSOLUTE AUTO 6.57 K/mm3 (1.96-9.15); NEUTROPHILS PERCENT AUTO 62 % (41-73); Platelet Count 266 K/mm3 (150-400); RDW Coefficient Variation 12.1 % (11.7-14.2); RDW Standard Deviation 36.8 fL (35.1-46.3); Red Blood Cell Count 4.32 M/mm3 (3.80-5.20); White Blood Cell Count 10.52 K/mm3 (4.00-11.30)
[2019-07-14 00:13] LABS: Alanine Aminotransfer (ALT/SGP 37 U/L (12-78); Albumin, Blood 3.6 g/dL (3.4-5.0); Albumin/Globulin Ratio 1.1 (0.8-1.8); Alk Phos 102 U/L (50-136); Anion Gap 9 mmol/L (6-16); Aspartate Aminotrans (AST/SGOT 18 U/L (12-37); Bilirubin, Total 0.4 mg/dL (0.1-1.0); Blood Urea Nitrogen 18 mg/dL (8-24); Bun/Creatinine Ratio 19.5 (12.0-20.0); CO2, Blood 26 mmol/L (21-32); Calcium, Blood 8.4 mg/dL (8.5-10.1); Chloride, Blood 104 mmol/L (98-108); Creatinine, Blood 0.92 mg/dL (0.40-1.00); Globulin, Blood 3.2 g/dL (2.2-4.0); Glomerular Filtration Rate >60 (60-); Glucose, Blood 169 mg/dL (70-99); Potassium, Blood 3.6 mmol/L (3.5-5.5); Sodium, Blood 139 mmol/L (136-145); Total Protein, Blood 6.8 g/dL (6.4-8.2); Troponin I <0.015 ng/mL (0.000-0.040)
[2019-07-14] MEDS ORDERED: PANT40 PO (00:28)
== END 2019-07-14 00:49 | disposition home or self-care (01) ==
LOC: ER 23:07
PROVIDERS: Emergency Medicine
DX: R07.9 Chest pain, unspecified (principal); E11.9 Type 2 diabetes mellitus without complications; E78.00 Pure hypercholesterolemia, unspecified; J45.909 Unspecified asthma, uncomplicated; I10 Essential (primary) hypertension
CPT/HCPCS: 71045; 80053; 83690; 84484; 85025; 93005; 93010; 96361; 96374; 96375; 99285-25; J1170; J2405; J7030

== ENCOUNTER → 2019-08-29 | Outpatient (CLI) | payer OTHER ==
[2019-08-29 13:50] LABS: Source, Urine Clean Catch
[2019-08-29 15:34] LABS: Bilirubin, Urine Neg (Neg); Blood, Urine Neg (Neg); Glucose Qualitative, Urine Neg (Neg); Ketones, Urine Neg (Neg); Leukocyte Esterase, Urine Neg (Neg); Nitrite, Urine Neg (Neg); Protein, Urine Neg (Neg); Specific Gravity, Urine 1.025 (1.003-1.022); Urobilinogen, Urine NORM (Normal)
[2019-08-29 15:47] LABS: Appearance, Urine Cloudy (Clear); Color, Urine Yellow (P-Yellow)
[2019-08-29 15:48] LABS: Amorphous Heavy (0-Heavy); Bacteria Few /hpf; Red Blood Cells, Urine Not Seen /hpf (0-2); Squamous Epithelial Cells Few /hpf (Few); White Blood Cells, Urine Not Seen /hpf (0-5)
== END | disposition home or self-care (01) ==
LOC: OLS 13:48 → LAB SHORT 13:48 → LAB FUT 09-05 14:50
PROVIDERS: Internal Medicine
DX: R30.0 Dysuria (principal)
CPT/HCPCS: 81001

== ENCOUNTER 2020-01-21 17:08 | Emergency (ER) | payer OTHER, BC ==
[~2020-01-21] VITALS: Ht 165.1 cm; Wt 85.7 kg
[~2020-01-21 17:08] MED LIST changes: +BENMENLOZ MT; +CLOP75 PO; +DILTIAZEM PO; +EPIPEN0.3 MG/0.1; +EUTHYROX125 MCG PO; +FLUTICASONE-SA1 EAC1 INH; +IPRAT-ALBUT 0.5-3 ML INH; +Imdur-ER60 MG PO; +Isosorbide Mono60 MG PO; +METF500C PO; +NITR.4SL SL; +PRED20 PO; +PREPARATION H C26 GM PR; +SEEBRI NEOHA15.6 MC1 INH
[2020-01-21 18:36] LABS: BASOPHILS ABSOLUTE AUTO 0.03 K/mm3 (0.00-0.23); BASOPHILS PERCENT AUTO 0 % (0-2); EOSINOPHILS ABSOLUTE AUTO 0.13 K/mm3 (0.00-0.68); EOSINOPHILS PERCENT AUTO 1 % (0-6); Hemoglobin 13.5 g/dL (11.5-16.0); IMMATURE GRAN ABSOLUTE AUTO 0.14 K/mm3 (0.00-0.10); IMMATURE GRAN PERCENT AUTO 1 % (0-1); LYMPHOCYTES ABSOLUTE AUTO 5.53 K/mm3 (0.84-5.20); LYMPHOCYTES PERCENT AUTO 31 % (21-46); MONOCYTES ABSOLUTE AUTO 1.23 K/mm3 (0.16-1.47); MONOCYTES PERCENT AUTO 7 % (4-13); Mean Corpuscular HGB 28.5 pg (26.0-34.0); Mean Corpuscular HGB Conc 33.8 g/dL (31.5-36.5); Mean Corpuscular Volume 85 fL (80-100); Mean Platelet Volume 10.6 fL (9.1-12.4); NEUTROPHILS ABSOLUTE AUTO 10.96 K/mm3 (1.96-9.15); NEUTROPHILS PERCENT AUTO 61 % (41-73); Platelet Count 243 K/mm3 (150-400); RDW Coefficient Variation 12.7 % (11.7-14.2); RDW Standard Deviation 38.8 fL (35.1-46.3); Red Blood Cell Count 4.73 M/mm3 (3.80-5.20); White Blood Cell Count 18.02 K/mm3 (4.00-11.30)
[2020-01-21 18:58] LABS: Troponin I <0.015 ng/mL (0.000-0.040)
[2020-01-21 19:03] LABS: Alanine Aminotransfer (ALT/SGP 34 U/L (12-78); Albumin, Blood 3.8 g/dL (3.4-5.0); Albumin/Globulin Ratio 1.2 (0.8-1.8); Alk Phos 75 U/L (50-136); Anion Gap 8 mmol/L (6-16); Aspartate Aminotrans (AST/SGOT 16 U/L (12-37); Bilirubin, Total 0.6 mg/dL (0.1-1.0); Blood Urea Nitrogen 25 mg/dL (8-24); Bun/Creatinine Ratio 25.9 (12.0-20.0); CO2, Blood 28 mmol/L (21-32); Calcium, Blood 9.2 mg/dL (8.5-10.1); Chloride, Blood 105 mmol/L (98-108); Creatinine, Blood 0.97 mg/dL (0.40-1.00); Globulin, Blood 3.2 g/dL (2.2-4.0); Glomerular Filtration Rate >60 (60-); Glucose, Blood 145 mg/dL (70-99); Potassium, Blood 3.6 mmol/L (3.5-5.5); Sodium, Blood 141 mmol/L (136-145)
[2020-01-21] MEDS ORDERED: Guaifenesin Wit10 ML PO (22:33)
== END 2020-01-21 22:52 | disposition home or self-care (01) ==
LOC: ER 17:08
PROVIDERS: Physician Assistant
DX: R05 Cough (principal); R06.00 Dyspnea, unspecified; R09.02 Hypoxemia; F32.9 Major depressive disorder, single episode, unspecified; K21.9 Gastro-esophageal reflux disease without esophagitis; E03.9 Hypothyroidism, unspecified; E11.9 Type 2 diabetes mellitus without complications; I10 Essential (primary) hypertension; J45.909 Unspecified asthma, uncomplicated; Z88.2 Allergy status to sulfonamides; Z88.1 Allergy status to other antibiotic agents; Z91.018 Allergy to other foods; Z79.899 Other long term (current) drug therapy; Z79.52 Long term (current) use of systemic steroids; Z79.84 Long term (current) use of oral hypoglycemic drugs
CPT/HCPCS: 36415; 71045; 80053; 84484; 85025; 93005; 93010; 99284-25

== ENCOUNTER → 2020-02-06 | Outpatient (CLI) | payer OTHER, BC ==
[~2020-02-06] MED LIST changes: +Guaifenesin Wit10 ML PO
[2020-02-06 16:31] LABS: Source, Urine Clean Catch
[2020-02-06 18:41] LABS: Bilirubin, Urine Neg (Neg); Blood, Urine Neg (Neg); Glucose Qualitative, Urine Neg (Neg); Ketones, Urine 1+ (Neg); Leukocyte Esterase, Urine Neg (Neg); Nitrite, Urine Neg (Neg); Protein, Urine Neg (Neg); Specific Gravity, Urine 1.015 (1.003-1.022); Urobilinogen, Urine NORM (Normal)
[2020-02-06 18:48] LABS: Appearance, Urine Clear (Clear); Color, Urine Yellow (P-Yellow)
== END | disposition home or self-care (01) ==
LOC: LAB SHORT 16:29 → LAB 16:29
PROVIDERS: Internal Medicine
DX: R30.0 Dysuria (principal)
CPT/HCPCS: 81003

== ENCOUNTER → 2020-10-18 | Outpatient (CLI) | payer OTHER, BC ==
[~2020-10-18] MED LIST changes: +ALPR.25 PO; +DESV50 PO; +DESVENLAFAXINE100 M3 PO; +FUROSEMIDE20 MG PO; +POTA10T PO; +Protonix40 MG PO; +duoneb
== END | disposition home or self-care (01) ==
LOC: LAB 17:50 → LAB SHORT 17:50
DX: K31.84 Gastroparesis (principal); R10.13 Epigastric pain; R73.03 Prediabetes
CPT/HCPCS: 87338

== ENCOUNTER → 2021-02-02 | Outpatient (CLI) | payer OTHER, BC | LOC: LAB 10:09 → LAB SHORT 10:09 | DX: R31.9 Hematuria, unspecified (principal); N39.0 Urinary tract infection, site not specified | CPT/HCPCS: 87077; 87086; 87186 ==

== ENCOUNTER 2021-03-06 18:05 | Emergency (ER) | payer OTHER, BC ==
[~2021-03-06] VITALS: Ht 165.1 cm; Wt 88.5 kg
[2021-03-06] MEDS ORDERED: LIDO700A20 TOP (19:55)
[2021-03-06] MEDS ORDERED: NAPR500 PO (19:55)
[2021-03-06] MEDS ORDERED: CYCL10 PO (19:55)
== END 2021-03-06 20:25 | disposition home or self-care (01) ==
LOC: ER 18:05
DX: M25.552 Pain in left hip (principal); E03.9 Hypothyroidism, unspecified; K21.9 Gastro-esophageal reflux disease without esophagitis; I10 Essential (primary) hypertension; J45.909 Unspecified asthma, uncomplicated; Z88.2 Allergy status to sulfonamides; Z88.8 Allergy status to other drugs, medicaments and biological substances; Z79.899 Other long term (current) drug therapy; Z79.84 Long term (current) use of oral hypoglycemic drugs
CPT/HCPCS: 73502; 96372; 99283-25; A9270; J1885

== ENCOUNTER → 2022-01-28 | Outpatient (CLI) | payer OTHER ==
[~2022-01-28] MED LIST changes: +LIDO700A20 TOP
[2022-01-28 14:54] LABS: Candida species (DNA Probe) Negative (NEGATIVE); G. vaginalis (DNA Probe) Negative (NEGATIVE); T. vaginalis (DNA Probe) Negative (NEGATIVE)
== END | disposition home or self-care (01) ==
LOC: LAB SHORT 10:41 → LAB 10:41
PROVIDERS: Internal Medicine
DX: N76.0 Acute vaginitis (principal)
CPT/HCPCS: 87480; 87510; 87660

== ENCOUNTER 2022-06-17 09:10 | Emergency (ER) | payer OTHER ==
[~2022-06-17] VITALS: Ht 165.1 cm; Wt 74.8 kg
[2022-06-17 09:53] LABS: BASOPHILS ABSOLUTE AUTO 0.05 K/mm3 (0.00-0.23); BASOPHILS PERCENT AUTO 1 % (0-2); EOSINOPHILS ABSOLUTE AUTO 0.32 K/mm3 (0.00-0.68); EOSINOPHILS PERCENT AUTO 4 % (0-6); Hematocrit 38.2 % (33.0-51.0); Hemoglobin 13.5 g/dL (11.5-16.0); IMMATURE GRAN ABSOLUTE AUTO 0.02 K/mm3 (0.00-0.10); IMMATURE GRAN PERCENT AUTO 0 % (0-1); LYMPHOCYTES PERCENT AUTO 24 % (21-46); MONOCYTES PERCENT AUTO 7 % (4-13); Mean Corpuscular HGB 28.8 pg (26.0-34.0); Mean Corpuscular HGB Conc 35.3 g/dL (31.5-36.5); Mean Corpuscular Volume 81 fL (80-100); Mean Platelet Volume 11.2 fL (9.1-12.4); NEUTROPHILS PERCENT AUTO 64 % (41-73); Platelet Count 229 K/mm3 (150-400); RDW Coefficient Variation 12.6 % (11.7-14.2); RDW Standard Deviation 37.2 fL (35.1-46.3); Red Blood Cell Count 4.69 M/mm3 (3.80-5.20); White Blood Cell Count 8.29 K/mm3 (4.00-11.30)
[2022-06-17 10:10] LABS: Albumin, Blood 3.8 g/dL (3.4-5.0); Albumin/Globulin Ratio 1.1 (0.8-1.8); Bilirubin, Total 0.5 mg/dL (0.1-1.0); Bun/Creatinine Ratio 18.1 (12.0-20.0); Calcium, Blood 9.5 mg/dL (8.5-10.1); Creatinine, Blood 0.77 mg/dL (0.40-1.00); Globulin, Blood 3.4 g/dL (2.2-4.0); Potassium, Blood 4.2 mmol/L (3.5-5.5); Total Protein, Blood 7.2 g/dL (6.4-8.2)
[2022-06-17] MEDS ORDERED: CYCL10 PO (12:03)
== END 2022-06-17 12:39 | disposition home or self-care (01) ==
LOC: ER 09:10
PROVIDERS: Student in an Organized Health Care Education/Training Program
DX: R07.9 Chest pain, unspecified (principal); R06.02 Shortness of breath; J45.909 Unspecified asthma, uncomplicated; E03.9 Hypothyroidism, unspecified; E11.9 Type 2 diabetes mellitus without complications; I10 Essential (primary) hypertension; Z88.2 Allergy status to sulfonamides; Z88.1 Allergy status to other antibiotic agents; Z91.018 Allergy to other foods; Z79.899 Other long term (current) drug therapy; Z79.84 Long term (current) use of oral hypoglycemic drugs
CPT/HCPCS: 36415; 71046; 80053; 83690; 84484; 85025; 85379; 93005; 93010; A9270; J1885; J2405; J3010

== ENCOUNTER 2022-10-28 06:43 | Day surgery (SDC) | payer OTHER ==
[~2022-10-28] VITALS: Ht 165.1 cm; Wt 79.6 kg
[~2022-10-28 06:43] MED LIST changes: +CARTIA XT240 M1; -DILTIAZEM PO
[2022-10-28 08:58] VITALS: BP 107/63
== END 2022-10-28 08:55 | disposition home or self-care (01) ==
LOC: ORSCSDS 06:43
PROVIDERS: Internal Medicine Gastroenterology
PROC: 0DB98ZX Excision of Duodenum, Via Natural or Artificial Opening Endoscopic, Diagnostic (ICD-10-PCS; principal; 2022-10-28 08:00)
PROC: 0DJD8ZZ Inspection of Lower Intestinal Tract, Via Natural or Artificial Opening Endoscopic (ICD-10-PCS; principal; 2022-10-28 08:00)
PROC: 0DB68ZX Excision of Stomach, Via Natural or Artificial Opening Endoscopic, Diagnostic (ICD-10-PCS; principal; 2022-10-28 08:00)
DX: R10.13 Epigastric pain (principal); R14.0 Abdominal distension (gaseous); K29.80 Duodenitis without bleeding; R11.0 Nausea; K21.00 Gastro-esophageal reflux disease with esophagitis, without bleeding; K57.30 Diverticulosis of large intestine without perforation or abscess without bleeding; K64.8 Other hemorrhoids; K44.9 Diaphragmatic hernia without obstruction or gangrene; Z86.010 Personal history of colon polyps; E11.9 Type 2 diabetes mellitus without complications; I10 Essential (primary) hypertension; E03.9 Hypothyroidism, unspecified; F32.A Depression, unspecified; J45.909 Unspecified asthma, uncomplicated; Z79.84 Long term (current) use of oral hypoglycemic drugs; Z79.899 Other long term (current) drug therapy
CPT/HCPCS: 82947; 88305; 88342; J2704; J7120

== ENCOUNTER → 2023-05-04 | Outpatient (CLI) | payer OTHER ==
[~2023-05-04] MED LIST changes: +CIPR500 PO; +Pyridium100 MG PO
[2023-05-04 15:35] LABS: Source, Urine Clean Catch
[2023-05-04 17:52] LABS: Appearance, Urine Clear (Clear); Bilirubin, Urine Neg (Neg); Blood, Urine 4+ (Neg); Color, Urine Yellow (P-Yellow); Glucose Qualitative, Urine Neg (Neg); Ketones, Urine Neg (Neg); Leukocyte Esterase, Urine 1+ (Neg); Nitrite, Urine Neg (Neg); Protein, Urine 2+ (Neg); Urobilinogen, Urine NORM (Normal)
[2023-05-04 18:04] LABS: Bacteria Few /hpf; Mucus Light (0-Heavy); Squamous Epithelial Cells Few /hpf (Few)
== END ==
LOC: LAB SHORT 15:34 → LAB 15:34
PROVIDERS: Internal Medicine
DX: N39.41 Urge incontinence (principal); R30.0 Dysuria
CPT/HCPCS: 81001; 87086

== ENCOUNTER 2023-05-07 03:46 | Emergency (ER) | payer OTHER ==
[~2023-05-07] VITALS: Ht 165.1 cm; Wt 86.2 kg
[~2023-05-07 03:46] MED LIST changes: -CIPR500 PO; -Pyridium100 MG PO
[2023-05-07 06:16] LABS: Source, Urine Clean Catch
[2023-05-07 06:28] LABS: BASOPHILS ABSOLUTE AUTO 0.06 K/mm3 (0.00-0.23); BASOPHILS PERCENT AUTO 1 % (0-2); EOSINOPHILS ABSOLUTE AUTO 0.23 K/mm3 (0.00-0.68); EOSINOPHILS PERCENT AUTO 2 % (0-6); Hematocrit 43.8 % (33.0-51.0); Hemoglobin 15.2 g/dL (11.5-16.0); IMMATURE GRAN ABSOLUTE AUTO 0.06 K/mm3 (0.00-0.10); IMMATURE GRAN PERCENT AUTO 1 % (0-1); LYMPHOCYTES ABSOLUTE AUTO 1.28 K/mm3 (0.84-5.20); LYMPHOCYTES PERCENT AUTO 10 % (21-46); MONOCYTES PERCENT AUTO 7 % (4-13); Mean Corpuscular HGB 28.8 pg (26.0-34.0); Mean Corpuscular HGB Conc 34.7 g/dL (31.5-36.5); Mean Corpuscular Volume 83 fL (80-100); Mean Platelet Volume 10.1 fL (9.1-12.4); NEUTROPHILS ABSOLUTE AUTO 10.19 K/mm3 (1.96-9.15); NEUTROPHILS PERCENT AUTO 80 % (41-73); Platelet Count 234 K/mm3 (150-400); RDW Coefficient Variation 12.5 % (11.7-14.2); RDW Standard Deviation 37.7 fL (35.1-46.3); Red Blood Cell Count 5.27 M/mm3 (3.80-5.20); White Blood Cell Count 12.72 K/mm3 (4.00-11.30)
[2023-05-07 06:29] LABS: Appearance, Urine Cloudy (Clear); Bilirubin, Urine Neg (Neg); Blood, Urine 5+ (Neg); Color, Urine Yellow (P-Yellow); Glucose Qualitative, Urine Neg (Neg); Ketones, Urine Neg (Neg); Leukocyte Esterase, Urine 2+ (Neg); Nitrite, Urine Neg (Neg); Protein, Urine 4+ (Neg); Urobilinogen, Urine NORM (Normal)
[2023-05-07 06:49] LABS: Bacteria Mod /hpf; Squamous Epithelial Cells Few /hpf (Few)
[2023-05-07 06:54] LABS: Albumin, Blood 4.1 g/dL (3.4-5.0); Bilirubin, Total 0.7 mg/dL (0.1-1.0); Calcium, Blood 9.5 mg/dL (8.5-10.1); Globulin, Blood 4.1 g/dL (2.2-4.0); Potassium, Blood 4.1 mmol/L (3.5-5.5); Total Protein, Blood 8.2 g/dL (6.4-8.2)
[2023-05-07 06:56] LABS: Hyaline Casts 0-2 /lpf (0-2)
[2023-05-07 07:00] LABS: White Blood Cells, Urine 25-50 /hpf (0-5)
[2023-05-07 07:06] VITALS: BP 136/90
[2023-05-07] MEDS ORDERED: TRAM50 PO (07:24)
[2023-05-07] MEDS ORDERED: CIPR500 PO (07:24)
[2023-05-07] MEDS ORDERED: Pyridium100 MG PO (08:03)
== END 2023-05-07 08:19 | disposition home or self-care (01) ==
LOC: ER 03:46
PROVIDERS: Emergency Medicine
DX: N12 Tubulo-interstitial nephritis, not specified as acute or chronic (principal); Z88.8 Allergy status to other drugs, medicaments and biological substances; Z88.2 Allergy status to sulfonamides; Z79.899 Other long term (current) drug therapy; K21.9 Gastro-esophageal reflux disease without esophagitis; J45.909 Unspecified asthma, uncomplicated; E03.9 Hypothyroidism, unspecified; E11.9 Type 2 diabetes mellitus without complications; I10 Essential (primary) hypertension
CPT/HCPCS: 74176; 80053; 81001; 85025; 87086; 96361; 96374; 96375; 99284-25; A9270; J1885; J2405; J3010; J7030

== ENCOUNTER 2023-05-11 08:16 | Emergency (ER) | payer OTHER ==
[~2023-05-11] VITALS: Ht 165.1 cm; Wt 83.9 kg
[~2023-05-11 08:16] MED LIST changes: +CIPR500 PO; +Pyridium100 MG PO
[2023-05-11 10:19] LABS: BASOPHILS ABSOLUTE AUTO 0.07 K/mm3 (0.00-0.23); BASOPHILS PERCENT AUTO 1 % (0-2); EOSINOPHILS ABSOLUTE AUTO 0.36 K/mm3 (0.00-0.68); EOSINOPHILS PERCENT AUTO 4 % (0-6); IMMATURE GRAN ABSOLUTE AUTO 0.03 K/mm3 (0.00-0.10); IMMATURE GRAN PERCENT AUTO 0 % (0-1); LYMPHOCYTES ABSOLUTE AUTO 2.15 K/mm3 (0.84-5.20); LYMPHOCYTES PERCENT AUTO 24 % (21-46); MONOCYTES ABSOLUTE AUTO 0.63 K/mm3 (0.16-1.47); MONOCYTES PERCENT AUTO 7 % (4-13); Mean Corpuscular HGB 28.6 pg (26.0-34.0); Mean Corpuscular HGB Conc 34.9 g/dL (31.5-36.5); Mean Corpuscular Volume 82 fL (80-100); Mean Platelet Volume 10.4 fL (9.1-12.4); NEUTROPHILS ABSOLUTE AUTO 5.58 K/mm3 (1.96-9.15); NEUTROPHILS PERCENT AUTO 63 % (41-73); Platelet Count 261 K/mm3 (150-400); RDW Coefficient Variation 12.4 % (11.7-14.2); Red Blood Cell Count 5.24 M/mm3 (3.80-5.20); White Blood Cell Count 8.82 K/mm3 (4.00-11.30)
[2023-05-11 10:42] LABS: Albumin, Blood 4.1 g/dL (3.4-5.0); Albumin/Globulin Ratio 1.1 (0.8-1.8); Bilirubin, Total 0.5 mg/dL (0.1-1.0); Bun/Creatinine Ratio 18.4 (12.0-20.0); Calcium, Blood 9.4 mg/dL (8.5-10.1); Creatinine, Blood 0.92 mg/dL (0.40-1.00); Globulin, Blood 3.9 g/dL (2.2-4.0); Potassium, Blood 4.5 mmol/L (3.5-5.5)
[2023-05-11 11:36] LABS: Source, Urine Clean Catch
[2023-05-11 11:41] LABS: Appearance, Urine Clear (Clear); Bilirubin, Urine Neg (Neg); Blood, Urine Neg (Neg); Color, Urine Yellow (P-Yellow); Glucose Qualitative, Urine Neg (Neg); Ketones, Urine Neg (Neg); Leukocyte Esterase, Urine Neg (Neg); Nitrite, Urine Neg (Neg); Protein, Urine Neg (Neg); Specific Gravity, Urine 1.005 (1.003-1.022); Urobilinogen, Urine NORM (Normal)
[2023-05-11 12:37] VITALS: BP 134/77
[2023-05-11] MEDS ORDERED: PROM25 PO (12:48)
[2023-05-11] MEDS ORDERED: OXYC5 PO (12:48)
== END 2023-05-11 13:03 | disposition home or self-care (01) ==
LOC: ER 08:16
PROVIDERS: Emergency Medicine
DX: R10.9 Unspecified abdominal pain (principal); E11.9 Type 2 diabetes mellitus without complications; J45.909 Unspecified asthma, uncomplicated; I10 Essential (primary) hypertension; Z88.2 Allergy status to sulfonamides; Z88.8 Allergy status to other drugs, medicaments and biological substances; Z91.018 Allergy to other foods; Z79.899 Other long term (current) drug therapy
CPT/HCPCS: 80053; 81003; 84484; 85025; 96360; 99284-25; A9270; J7030

== ENCOUNTER → 2023-05-12 | Outpatient (CLI) | payer OTHER ==
[~2023-05-12] MED LIST changes: +OXYC5 PO; +PROM25 PO
[2023-05-13 12:36] LABS: Candida species (DNA Probe) Negative (NEGATIVE); G. vaginalis (DNA Probe) Negative (NEGATIVE); T. vaginalis (DNA Probe) Negative (NEGATIVE)
== END | disposition home or self-care (01) ==
LOC: LAB SHORT 11:40 → LAB 11:40
PROVIDERS: Internal Medicine
DX: N76.0 Acute vaginitis (principal)
CPT/HCPCS: 87480; 87510; 87660

== ENCOUNTER → 2023-06-08 | Outpatient (CLI) | payer OTHER ==
[2023-06-11 09:11] LABS: PANCREATIC ELASTASE,FECAL >800 ug/g (>=100)
== END | disposition home or self-care (01) ==
LOC: LAB 05:50 → LAB SHORT 05:50
PROVIDERS: Internal Medicine
DX: K31.84 Gastroparesis (principal)
CPT/HCPCS: 82653

== ENCOUNTER → 2023-11-18 | Outpatient (CLI) | payer OTHER ==
[~2023-11-18] MED LIST changes: +ABILIFY MYCITE2 M2 PO; +ERYTHROMYCIN250 M3 PO; +LEVSOD150 PO; +MONDOXYNE NL100 MG PO; +PANT20 PO; +PRED5; +RAYOS5 M1
== END | disposition home or self-care (01) ==
LOC: LAB SHORT 07:28 → LAB 07:28
DX: R30.0 Dysuria (principal); R35.0 Frequency of micturition; R31.9 Hematuria, unspecified
CPT/HCPCS: 87077; 87086; 87186

== ENCOUNTER 2023-12-10 08:23 | Emergency (ER) | payer OTHER ==
[~2023-12-10] VITALS: Ht 165.1 cm; Wt 79.8 kg
[2023-12-10] MEDS ORDERED: Ondansetron HCl 2 MG / ML 2ML Vial IV ONE (09:45)
[2023-12-10] MEDS ORDERED: NS 1,000 ML IV SCH (09:45)
[2023-12-10] MEDS ORDERED: HYDROmorphone HCl/Pf 1MG SYR IV ONE (09:45)
[2023-12-10] MEDS ORDERED: Ondansetron HCl 2 MG / ML 2ML Vial ONE (10:05)
[2023-12-10] MEDS ORDERED: HYDROmorphone HCl/Pf 1MG SYR ONE (10:05)
[2023-12-10] MEDS ORDERED: ERYTHROMYCIN250 M2 PO (10:18)
[2023-12-10 10:20] LABS: BASOPHILS ABSOLUTE AUTO 0.07 K/mm3 (0.00-0.23); BASOPHILS PERCENT AUTO 1 % (0-2); EOSINOPHILS ABSOLUTE AUTO 0.22 K/mm3 (0.00-0.68); EOSINOPHILS PERCENT AUTO 2 % (0-6); Hematocrit 44.1 % (33.0-51.0); Hemoglobin 15.1 g/dL (11.5-16.0); IMMATURE GRAN ABSOLUTE AUTO 0.04 K/mm3 (0.00-0.10); IMMATURE GRAN PERCENT AUTO 0 % (0-1); LYMPHOCYTES ABSOLUTE AUTO 1.66 K/mm3 (0.84-5.20); LYMPHOCYTES PERCENT AUTO 18 % (21-46); MONOCYTES ABSOLUTE AUTO 0.66 K/mm3 (0.16-1.47); MONOCYTES PERCENT AUTO 7 % (4-13); Mean Corpuscular HGB 28.7 pg (26.0-34.0); Mean Corpuscular HGB Conc 34.2 g/dL (31.5-36.5); Mean Corpuscular Volume 84 fL (80-100); NEUTROPHILS ABSOLUTE AUTO 6.61 K/mm3 (1.96-9.15); NEUTROPHILS PERCENT AUTO 71 % (41-73); Platelet Count 254 K/mm3 (150-400); RDW Coefficient Variation 12.4 % (11.7-14.2); RDW Standard Deviation 37.6 fL (35.1-46.3); Red Blood Cell Count 5.27 M/mm3 (3.80-5.20); White Blood Cell Count 9.26 K/mm3 (4.00-11.30)
[2023-12-10 10:38] LABS: Albumin, Blood 4.3 g/dL (3.4-5.0); Albumin/Globulin Ratio 1.1 (0.8-1.8); Bilirubin, Total 0.6 mg/dL (0.1-1.0); Bun/Creatinine Ratio 13.2 (12.0-20.0); Calcium, Blood 9.4 mg/dL (8.5-10.1); Creatinine, Blood 0.99 mg/dL (0.40-1.00); Globulin, Blood 3.8 g/dL (2.2-4.0); Potassium, Blood 4.3 mmol/L (3.5-5.5); Total Protein, Blood 8.1 g/dL (6.4-8.2)
[2023-12-10] MEDS ORDERED: Ketorolac Tromethamine 30mg Vial IV ONE (12:10)
[2023-12-10] MEDS ORDERED: Dicyclomine HCl 20 MG Tab PO ONE (12:40)
[2023-12-10 12:45] VITALS: BP 124/69
[2023-12-10] MEDS ORDERED: BISA5EC PO (12:46)
[2023-12-10] MEDS ORDERED: MIRALAX17 GM PO (12:46)
[2023-12-10] MEDS ORDERED: MAGCIT300 PO (12:46)
[2023-12-10] MEDS ORDERED: DICY20 PO (12:46)
== END 2023-12-10 13:02 | disposition home or self-care (01) ==
LOC: ER 08:23
PROVIDERS: Emergency Medicine
DX: K59.00 Constipation, unspecified (principal); R10.10 Upper abdominal pain, unspecified; J45.909 Unspecified asthma, uncomplicated; E11.9 Type 2 diabetes mellitus without complications; I10 Essential (primary) hypertension; Z88.2 Allergy status to sulfonamides; Z88.8 Allergy status to other drugs, medicaments and biological substances; Z79.899 Other long term (current) drug therapy
CPT/HCPCS: 74177; 80053; 83690; 84484; 85025; 93005; 93010; 96361; 96374-59; 96375; 99284-25; A9270; J1170; J1885; J2405; Q9967

== ENCOUNTER 2023-12-14 08:06 | Emergency (ER) | payer OTHER ==
[~2023-12-14] VITALS: Ht 165.1 cm; Wt 81.7 kg
[~2023-12-14 08:06] MED LIST changes: +BISA5EC PO; +DICY20 PO; +ERYTHROMYCIN250 M2 PO; +MAGCIT300 PO; +MIRALAX17 GM PO
[2023-12-14] MEDS ORDERED: Ondansetron 4 MG SoluTab SL ONE (08:40)
[2023-12-14] MEDS ORDERED: Ondansetron HCl 2 MG / ML 2ML Vial IV ONE (09:05)
[2023-12-14 09:09] LABS: BASOPHILS ABSOLUTE AUTO 0.06 K/mm3 (0.00-0.23); BASOPHILS PERCENT AUTO 1 % (0-2); EOSINOPHILS ABSOLUTE AUTO 0.22 K/mm3 (0.00-0.68); EOSINOPHILS PERCENT AUTO 3 % (0-6); Hematocrit 41.1 % (33.0-51.0); Hemoglobin 14.2 g/dL (11.5-16.0); IMMATURE GRAN ABSOLUTE AUTO 0.01 K/mm3 (0.00-0.10); IMMATURE GRAN PERCENT AUTO 0 % (0-1); LYMPHOCYTES ABSOLUTE AUTO 1.55 K/mm3 (0.84-5.20); LYMPHOCYTES PERCENT AUTO 22 % (21-46); MONOCYTES ABSOLUTE AUTO 0.58 K/mm3 (0.16-1.47); MONOCYTES PERCENT AUTO 8 % (4-13); Mean Corpuscular HGB 28.9 pg (26.0-34.0); Mean Corpuscular HGB Conc 34.5 g/dL (31.5-36.5); Mean Corpuscular Volume 84 fL (80-100); NEUTROPHILS ABSOLUTE AUTO 4.74 K/mm3 (1.96-9.15); NEUTROPHILS PERCENT AUTO 66 % (41-73); Platelet Count 206 K/mm3 (150-400); RDW Coefficient Variation 12.5 % (11.7-14.2); RDW Standard Deviation 37.8 fL (35.1-46.3); Red Blood Cell Count 4.91 M/mm3 (3.80-5.20); White Blood Cell Count 7.16 K/mm3 (4.00-11.30)
[2023-12-14] MEDS ORDERED: NS 1,000 ML IV SCH ×2 (09:15→09:25)
[2023-12-14] MEDS ORDERED: Simethicone 40 MG/0.6 ML 30ML BTL PO ONE (09:15)
[2023-12-14 09:26] LABS: Albumin, Blood 3.8 g/dL (3.4-5.0); Albumin/Globulin Ratio 1.1 (0.8-1.8); Bilirubin, Total 0.5 mg/dL (0.1-1.0); Bun/Creatinine Ratio 15.7 (12.0-20.0); Calcium, Blood 8.7 mg/dL (8.5-10.1); Creatinine, Blood 0.95 mg/dL (0.40-1.00); Globulin, Blood 3.4 g/dL (2.2-4.0); Potassium, Blood 4.3 mmol/L (3.5-5.5); Total Protein, Blood 7.2 g/dL (6.4-8.2)
[2023-12-14] MEDS ORDERED: ONDA4ODT MM (10:03)
[2023-12-14 10:30] VITALS: BP 128/74
== END 2023-12-14 11:04 | disposition home or self-care (01) ==
LOC: ER 08:06
PROVIDERS: Physician Assistant
DX: K52.9 Noninfective gastroenteritis and colitis, unspecified (principal); E11.9 Type 2 diabetes mellitus without complications; E03.9 Hypothyroidism, unspecified; I10 Essential (primary) hypertension; J45.909 Unspecified asthma, uncomplicated; Z79.899 Other long term (current) drug therapy; Z88.2 Allergy status to sulfonamides; Z91.018 Allergy to other foods; Z88.8 Allergy status to other drugs, medicaments and biological substances
CPT/HCPCS: 74018; 80053; 83605; 85025; 96361; 96374; 99283-25; A9270; J2405; J7030

== ENCOUNTER 2024-08-17 16:00 | Observation (INO) | payer OTHER ==
[~2024-08-17] VITALS: Ht 165.1 cm; Wt 75.7 kg
[~2024-08-17 16:00] MED LIST changes: +ROSUVASTATIN CA20 MG PO
[2024-08-17 16:32] LABS: BASOPHILS ABSOLUTE AUTO 0.06 K/mm3 (0.00-0.23); BASOPHILS PERCENT AUTO 1 % (0-2); EOSINOPHILS ABSOLUTE AUTO 0.26 K/mm3 (0.00-0.68); EOSINOPHILS PERCENT AUTO 3 % (0-6); Hematocrit 39.8 % (33.0-51.0); IMMATURE GRAN ABSOLUTE AUTO 0.02 K/mm3 (0.00-0.10); IMMATURE GRAN PERCENT AUTO 0 % (0-1); LYMPHOCYTES ABSOLUTE AUTO 2.25 K/mm3 (0.84-5.20); LYMPHOCYTES PERCENT AUTO 24 % (21-46); MONOCYTES ABSOLUTE AUTO 0.76 K/mm3 (0.16-1.47); MONOCYTES PERCENT AUTO 8 % (4-13); Mean Corpuscular HGB 29.6 pg (26.0-34.0); Mean Corpuscular HGB Conc 35.2 g/dL (31.5-36.5); Mean Corpuscular Volume 84 fL (80-100); Mean Platelet Volume 11.1 fL (9.1-12.4); NEUTROPHILS PERCENT AUTO 64 % (41-73); Platelet Count 233 K/mm3 (150-400); RDW Coefficient Variation 12.5 % (11.7-14.2); Red Blood Cell Count 4.73 M/mm3 (3.80-5.20); White Blood Cell Count 9.25 K/mm3 (4.00-11.30)
[2024-08-17 16:59] LABS: Albumin, Blood 4.3 g/dL (3.4-5.0); Albumin/Globulin Ratio 1.2 (0.8-1.8); Bilirubin, Total 0.6 mg/dL (0.1-1.0); Bun/Creatinine Ratio 23.3 (12.0-20.0); Creatinine, Blood 0.82 mg/dL (0.40-1.00); Globulin, Blood 3.5 g/dL (2.2-4.0); Potassium, Blood 3.6 mmol/L (3.5-5.5); Total Protein, Blood 7.8 g/dL (6.4-8.2)
[2024-08-17] MEDS ORDERED: Nitroglycerin 0.4 MG SUBL SL ONE (18:15)
[2024-08-17] MEDS ORDERED: Morphine Sulfate 4 MG/1 ML Injection IV ONE (19:20)
[2024-08-17] MEDS ORDERED: Aspirin 325 MG Tab PO ONE (19:25)
[2024-08-17] MEDS ORDERED: Ondansetron HCl 2 MG / ML 2ML Vial IV ONE (20:20)
[2024-08-17 23:02] VITALS: BP 144/80
[2024-08-18 04:46] VITALS: BP 131/83
[2024-08-18 07:47] VITALS: BP 140/81
--- NOTE | 2024-08-18 07:49 | NUR ---
SHIFT SUMMARY PT ARRIVED FROM ED AT 2300. ADMITTED D/T CP SINCE 1000. PT STATED TO ED SHE TOOK NITRO AT HOME, WHICH LESSENED THE PAIN. PT TROP LAB VALUES 10, THEN 21. SHE IS HERE FOR OBS TO MONITOR HEART RATE/RHYTHM. PT STATED SADNESS D/T FACT HER MOTHER WAS RECENTLY PLACED ON HOSPICE CARE. PT HAS NO ORDERS FOR MEDICATIONS. PT HAS STRESS TEST IN AM. NPO EXCEPT WATER. PT SLEEPING THROUGH NIGHT.
[2024-08-18] MEDS ORDERED: Morphine Sulfate 4 MG/1 ML Injection IV PRN (07:55)
[2024-08-18] MEDS ORDERED: Regadenoson 0.4 MG/5 ML SYRINGE ONE (11:14)
[2024-08-18] MEDS ORDERED: Caffeine Citrated 60 MG/3 ML Vial ONE (11:14)
[2024-08-18] MEDS ORDERED: Ondansetron HCl 2 MG / ML 2ML Vial IV PRN (14:30)
[2024-08-18 15:49] VITALS: BP 125/65
--- NOTE | 2024-08-18 16:23 | NUR ---
SHIFT SUMMARY AOX4, COOPERATIVE, ABLE TO MAKE NEEDS KNOWN. PT HAD STRESS TEST PERFORMED TODAY, AWAITING RESULTS. IND IN ROOM TO VOID. COMPLAINS OF CHEST PAIN OCCASSIONALLY, MEDICATING WITH MORPHINE PER EMAR. HAD NV EARLIER THIS SHIFT, VERBAL ORDERED KATHIA. RUNNING TELE CURRENLY. BED IN LOWEST POSITIN, CALL LIGHT WITHIN REACH.
[2024-08-18] MEDS ORDERED: ONDA4ODT MM (17:29)
[2024-08-18] MEDS ORDERED: OMEP20ER PO (17:29)
[2024-08-18] MEDS ORDERED: MYLANTA MAXIMUM10 ML PO (17:31)
[2024-08-18] MEDS ORDERED: Ondansetron 4 MG TAB PO ONE (17:35)
--- NOTE | 2024-08-18 17:49 | NUR ---
SHIFT SUMMARY/DISCHARGE PT AOX4, COOPERATIVE, ABLE TO MAKE NEEDS KNOWN. IV DC'D BY THIS RN WITHOUT EVENTS. THIS RN WENT OVER DC PAPERWORK WITH PT. NEW MEDS FAXED TO [facility] TO BE PICKED UP TOMORROW. ADMINISTERED [facility] BEFORE DC TO "HOLD OVER" UNTIL TOMORROW. PT WALKED OUT OF ROOM BEFORE THIS RN COULD OFFER A WHEELCHAIR TRANSFER.
== END 2024-08-18 17:47 | disposition home or self-care (01) ==
LOC: ER 16:00 → MEDS 16:01 → ERHOLD 16:01 → MEDS 23:00
PROVIDERS: Student in an Organized Health Care Education/Training Program; ADMIT Internal Medicine
DX: R07.89 Other chest pain (principal); R11.2 Nausea with vomiting, unspecified; I10 Essential (primary) hypertension; E11.9 Type 2 diabetes mellitus without complications; E03.9 Hypothyroidism, unspecified; E78.5 Hyperlipidemia, unspecified; I25.85 Chronic coronary microvascular dysfunction; Z88.1 Allergy status to other antibiotic agents; Z88.2 Allergy status to sulfonamides; Z79.890 Hormone replacement therapy; Z79.899 Other long term (current) drug therapy
CPT/HCPCS: 71046; 78452; 80053; 84484; 85025; 93005; 93010; 93017; 96374; 96375; 96376; 99285-25; A9270; A9500; G0378; J0706; J2270; J2405; J2785